=== PATIENT | female | born 1950 | race Asian ===

== ENCOUNTER 2019-06-15 00:49 | Inpatient (IN) | payer MEDICARE, OTHER ==
[~2019-06-15] VITALS: Ht 152.4 cm; Wt 63.0 kg
[2019-06-15] MEDS ORDERED: NITROGLYCERIN 0.4 MG SUBLINGUAL TABLET #25 SL ONE (01:00)
[2019-06-15] MEDS ORDERED: NITROGLYCERIN 50 MG/D5% WATER 250 ML ONE (01:01)
[2019-06-15 01:04] LABS: GLUCOSE,POINT OF CARE 178 MG/DL (70-110)
[2019-06-15] MEDS ORDERED: SITA50 PO (01:08)
[2019-06-15] MEDS ORDERED: METF-960 PO (01:10)
[2019-06-15 01:30] LABS: CALCIUM, TOTAL 8.6 mg/dL (8.8-10.5); CREATININE 1.49 mg/dL (0.60-1.30); POTASSIUM 3.6 mmol/L (3.5-5.1)
[2019-06-15 01:35] LABS: ALBUMIN 2.5 g/dL (3.4-5.0); BILIRUBIN,TOTAL 0.2 mg/dL (0.1-1.0); TOTAL PROTEIN, SERUM 7.6 g/dL (6.4-8.2)
[2019-06-15] MEDS ORDERED: NITROGLYCERIN 50 MG/D5% WATER 250 ML IV PRN (02:00)
[2019-06-15 02:06] LABS: BASOPHILS % (AUTO) 0.9 % (0.0-2.0); EOSINOPHILS % (AUTO) 3.9 % (1.0-6.0); HEMATOCRIT 39.4 % (36-46); HEMOGLOBIN 12.7 g/dL (12.0-16.0); LYMPHOCYTES # (AUTO) 6.2 K/uL (1.0-4.8); LYMPHOCYTES % (AUTO) 42.1 % (22.0-44.0); MEAN CORPUSCULAR HEMOGLOBIN 29.2 pg (26.0-34.0); MEAN CORPUSCULAR HGB CONC 32.2 G/dL (31.0-37.0); MEAN CORPUSCULAR VOLUME 91 fL (80-100); NEUTROPHILS # (AUTO) 6.8 K/uL (1.8-7.7); NEUTROPHILS % (AUTO) 46.1 % (40.0-70.0); PLATELET COUNT (AUTO) 353 K/uL (150-450); RED BLOOD CELL COUNT(AUTO) 4.34 MIL/uL (4.00-5.20)
[2019-06-15] MEDS ORDERED: AZITHROMYCIN 250 MG TABLET PO ONE (02:30)
[2019-06-15] MEDS ORDERED: CefTRIAXone 1 GM/DEXTROSE 50 ML IV ONE (02:30)
[2019-06-15 03:27] LABS: INFLUENZA TYPE A NEGATIVE FOR TYPE A (NEGATIVE); INFLUENZA TYPE B NEGATIVE FOR TYPE B (NEGATIVE)
[2019-06-15] MEDS ORDERED: 0.9% SODIUM CHLORIDE 10 ML SYRINGE IVP PRN (03:30)
[2019-06-15] MEDS ORDERED: ACETAMINOPHEN 325 MG TABLET PO PRN (03:30)
[2019-06-15 05:28] VITALS: BP 158/84
[2019-06-15 05:41] VITALS: BP 158/84
[2019-06-15 07:21] VITALS: BP 135/71
[2019-06-15 11:16] VITALS: BP 144/119
[2019-06-15 11:35] VITALS: BP 150/98
[2019-06-15 12:35] LABS: GLUCOMETER DEV NAME(LOC) 5N.1; GLUCOSE,POINT OF CARE 123 MG/DL (70-110)
[2019-06-15 15:47] VITALS: BP 157/84
[2019-06-15] MEDS ORDERED: INSULIN LISPRO 100 UNITS/ML SQ PRN (17:00)
[2019-06-15] MEDS ORDERED: DEXTROSE 50%-WATER 25 GM/50 ML SYRINGE IVP PRN (17:00)
[2019-06-15 22:56] LABS: GLUCOMETER DEV NAME(LOC) 5S.1; GLUCOSE,POINT OF CARE 117 MG/DL (70-110)
[2019-06-16] MEDS ORDERED: CefTRIAXone 1 GM/DEXTROSE 50 ML IV SCH (05:00)
[2019-06-16] MEDS ORDERED: AZITHROMYCIN 500 MG/NS 250 ML IV SCH (06:00)
== END 2019-06-15 18:00 | disposition left against medical advice (07) | DRG 194 ==
LOC: EMS 00:49 → 5N 04:00
PROVIDERS: ADMIT Hospitalist; ATTEND Hospitalist
DX: J18.9 Pneumonia, unspecified organism (principal); R65.10 Systemic inflammatory response syndrome (SIRS) of non-infectious origin without acute organ dysfunction; J81.1 Chronic pulmonary edema; E11.9 Type 2 diabetes mellitus without complications; F17.210 Nicotine dependence, cigarettes, uncomplicated; Z53.29 Procedure and treatment not carried out because of patient's decision for other reasons; I50.9 Heart failure, unspecified
CPT/HCPCS: 83605; 87040; 87804; 94660; 99291; J0456; J0696; J3490